=== PATIENT | female | born 1990 | race Caucasian/White ===

== ENCOUNTER 2022-12-12 09:50 | Outpatient (CLI) | payer BC, SELFPAY | END 2022-12-12 09:51 | disposition home or self-care (01) | PROVIDERS: PCP Physician Assistant Medical; Visit Provider Physician Assistant Medical | DX: E04.1 Nontoxic single thyroid nodule (principal) | CPT/HCPCS: 84443 ==

== ENCOUNTER 2022-12-19 14:39 | Outpatient (CLI) | payer BC, SELFPAY ==
--- NOTE | 2022-12-19 14:45 | CRLHL7_ITS ---
For Patients: As a result of the Cures Act, medical imaging exams and procedure reports are released immediately into your electronic medical record. You may view this report before your referring provider. If you have questions, please contact your health care provider. INDICATION: Follow up thyroid lobe nodules. TECHNIQUE: Directed thyroid ultrasound. COMPARISON: November 25, 2011. November 22, 2017. FINDINGS: The right thyroid lobe measures 5.9 x 1.6 x 1.7 cm. The left thyroid lobe measures 4.8 x 1.5 x 1.7 cm. The isthmus measures 0.4 cm in thickness. Stable solid hypoechoic nodule inferior left thyroid gland measuring 5 x 4 x 4 mm, previously 4 x 6 x 4 mm. Mid upper pole right thyroid lobe nodule measuring 1.2 x 0.6 x 1.6 cm, previously 1.6 x 0.7 x 1 cm. This is solid and well circumscribed. Within the inferior pole of the right thyroid gland there is a 1.8 x 0.6 x 1.2 cm solid well-circumscribed nodule previously measuring 1.1 x 0.7 x 1.0 cm. No new nodules. No glo thyroidal masses or lymphadenopathy. IMPRESSION: 1. Stable lower pole left thyroid lobe nodule. 2. Stable mid upper pole right thyroid lobe nodule. 3. Slight increase in the size of a lower pole nodule on the right measuring up to 1.8 cm previously 1.1 cm. This can be followed. TI-RADS 3. TR3: Mildly Suspicious FNA if greater than or equal to 2.5 cm Follow if greater than or equal to 1.5 cm Dictated by Robb Fournier MD @ 12/20/2022 8:07:51 AM (Electronically Signed)
== END 2022-12-19 14:40 | disposition home or self-care (01) ==
LOC: US 14:40
PROVIDERS: PCP Physician Assistant Medical; Visit Provider Physician Assistant Medical
DX: E04.1 Nontoxic single thyroid nodule (principal)
CPT/HCPCS: 76536

== ENCOUNTER 2023-06-23 12:39 | Outpatient (CLI) | payer BC, SELFPAY ==
--- NOTE | 2023-06-23 13:00 | CRLHL7_ITS ---
For Patients: As a result of the Century Cures Act, medical imaging exams and procedure reports are released immediately into your electronic medical record. You may view this report before your referring provider. If you have questions, please contact your health care provider. INDICATION: Thyroid nodules. TECHNIQUE: Ultrasound thyroid with merchant-scale and color Doppler analysis. COMPARISON: 12/19/2022 FINDINGS: Right lobe: 6.1 x 1.7 x 2.1 cm. Lesion 1: Hypoechoic nodule measuring 1.6 x 0.7 x 1.3 cm, previously measuring 1.6 cm. Lesion 2: Hypoechoic nodule measuring 1.3 x 0.7 x 1.2 cm, previously measuring 1.8 x 0.6 x 1.2 cm. Left lobe: 5.0 x 1.5 x 1.8 cm. Lesion 1: Hypoechoic nodule measuring 5 x 5 x 5 millimeters, previously measuring 5 x 4 x 4 millimeters. Isthmus: 3 millimeters Echotexture of the thyroid parenchyma is normal. Color Doppler analysis demonstrates normal vascularity. No evidence of lymphadenopathy or parathyroid mass. IMPRESSION: Similar bilateral thyroid nodules. - ACR TI-RADS [email or web address] TR1: Benign No FNA TR2: Not Suspicious No FNA TR3: Mildly Suspicious FNA if greater than or equal to 2.5 cm Follow if greater than or equal to 1.5 cm TR4: Moderately Suspicious FNA if greater than or equal to 1.5 cm Follow if greater than or equal to 1 cm TR5: Highly Suspicious FNA if greater than or equal to 1 cm Follow if greater than or equal to 0.5 cm Dictated by Panda Marques MD @ 06/23/2023 1:30:58 PM (Electronically Signed)
== END 2023-06-23 12:40 | disposition home or self-care (01) ==
LOC: US 12:40
PROVIDERS: PCP Physician Assistant Medical; Visit Provider Physician Assistant Medical
DX: E04.1 Nontoxic single thyroid nodule (principal)
CPT/HCPCS: 76536

== ENCOUNTER 2024-03-11 08:53 | Outpatient (CLI) | payer BC, SELFPAY | END 2024-03-11 08:54 | disposition home or self-care (01) | LOC: LKVREF 08:54 | PROVIDERS: PCP Physician Assistant Medical; Visit Provider Obstetrics & Gynecology | DX: O26.851 Spotting complicating pregnancy, first trimester (principal); Z3A.01 Less than 8 weeks gestation of pregnancy | CPT/HCPCS: 84702 ==

== ENCOUNTER 2024-03-13 10:23 | Outpatient (CLI) | payer BC, SELFPAY | END 2024-03-13 10:24 | disposition home or self-care (01) | LOC: NFLDREF 03-15 12:55 | PROVIDERS: PCP Physician Assistant Medical; Referring Provider Physician Assistant Medical; Visit Provider Obstetrics & Gynecology | DX: O20.9 Hemorrhage in early pregnancy, unspecified (principal) | CPT/HCPCS: 84702 ==

== ENCOUNTER 2024-03-18 10:24 | Outpatient (CLI) | payer BC, SELFPAY | END 2024-03-18 10:25 | disposition home or self-care (01) | PROVIDERS: PCP Physician Assistant Medical; Visit Provider Physician Assistant | DX: O03.9 Complete or unspecified spontaneous abortion without complication (principal) | CPT/HCPCS: 84702 ==

== ENCOUNTER 2025-03-07 16:39 | Outpatient (CLI) | payer BC, SELFPAY | END 2025-03-07 16:40 | disposition home or self-care (01) | LOC: LKVREF 16:40 | PROVIDERS: PCP Physician Assistant Medical; Visit Provider Obstetrics & Gynecology | DX: Z34.91 Encounter for supervision of normal pregnancy, unspecified, first trimester (principal) | CPT/HCPCS: 84702 ==

== ENCOUNTER 2025-03-10 09:09 | Outpatient (CLI) | payer BC, SELFPAY | END 2025-03-10 09:10 | disposition home or self-care (01) | LOC: NFLDREF 03-12 08:16 | PROVIDERS: PCP Physician Assistant Medical; Referring Provider Physician Assistant Medical; Visit Provider Obstetrics & Gynecology | DX: Z34.91 Encounter for supervision of normal pregnancy, unspecified, first trimester (principal) | CPT/HCPCS: 84702 ==

== ENCOUNTER 2025-04-08 11:07 | Outpatient (CLI) | payer BC, SELFPAY ==
--- NOTE | 2025-04-08 11:30 | CRLHL7_ITS ---
For Patients: As a result of the Cures Act, medical imaging exams and procedure reports are released immediately into your electronic medical record. You may view this report before your referring provider. If you have questions, please contact your health care provider. OB ULTRASOUND INDICATION: Dating and viability. TECHNIQUE: Real time grayscale imaging of the fetus was performed. Transvaginal. Transvaginal imaging performed to better demonstrate the endometrium and ovaries. Surgery: One previous 9 years ago. LMP: 02/01/2025. MARLON by LMP: 11/08/2025. GA: 9 w, 3 d. Previous US: No CRL: 2.8 cm. 9 w 4 d. MARLON: 11/07/2025. FHR: 176 BPM. Gestational sac: 3.2 cm. Appears within normal limits. Yolk sac: 3.9 mm. Appears within normal limits. Right ovary: 4.1 x 1.9 x 2.3 cm. CL. Left ovary: N/V. IMPRESSION: 1. Single living intrauterine measures 9 weeks 4 days with sonographic due date 11/07/2025. 2. Right-sided subchorionic hemorrhage measures 13 x 14 x 4 mm. Panda Marques M.D. Diagnostic Radiologist [email or web address] OTTO/rosalind boyer/Dictated by: Panda Marques MD @ 04/08/2025 12:12:00 PM (Electronically Signed)
== END 2025-04-08 11:08 | disposition home or self-care (01) ==
LOC: US 11:08
PROVIDERS: PCP Physician Assistant Medical; Visit Provider Advanced Practice Midwife
DX: O20.9 Hemorrhage in early pregnancy, unspecified (principal); Z3A.09 9 weeks gestation of pregnancy
CPT/HCPCS: 76817; 83021; 84439; 84443; 86703; 86706; 86803; 86850; 86900; 86901; 87086; 87340; 87491; 87591; 87624

== ENCOUNTER 2025-04-08 13:38 | Outpatient (CLI) | payer BC, SELFPAY ==
[2025-04-08 16:12] LABS: Chlamydia DNA Amplified* NOT DETECTED (No Detected); GC DNA Amplified* NOT DETECTED (No Detected)
[2025-04-10 17:25] LABS: HPV Source Cervical
[2025-04-11 14:23] LABS: Pap Test Digital Imaging Done
== END 2025-04-08 13:39 | disposition home or self-care (01) ==
PROVIDERS: PCP Physician Assistant Medical; Visit Provider Advanced Practice Midwife
DX: Z34.91 Encounter for supervision of normal pregnancy, unspecified, first trimester (principal)
CPT/HCPCS: 83020; 83021; 84439; 84443; 85660; 86592; 86703; 86704; 86706; 86762; 86787; 86803; 86850; 86900; 86901; 87086; 87340; 87491; 87591; 87624; 87625; 88141; 88142; 88175

== ENCOUNTER 2025-04-30 10:55 | Outpatient (CLI) | payer BC, SELFPAY | END 2025-04-30 10:56 | disposition home or self-care (01) | PROVIDERS: PCP Physician Assistant Medical; Visit Provider Midwife | DX: Z34.91 Encounter for supervision of normal pregnancy, unspecified, first trimester (principal); E04.1 Nontoxic single thyroid nodule; R89.9 Unspecified abnormal finding in specimens from other organs, systems and tissues | CPT/HCPCS: 84432; 86376; 86706; 86800 ==

== ENCOUNTER 2025-05-27 13:07 | Outpatient (CLI) | payer BC, SELFPAY | END 2025-05-27 13:08 | disposition home or self-care (01) | PROVIDERS: PCP Physician Assistant Medical; Visit Provider Obstetrics & Gynecology | DX: O99.282 Endocrine, nutritional and metabolic diseases complicating pregnancy, second trimester (principal); E05.90 Thyrotoxicosis, unspecified without thyrotoxic crisis or storm | CPT/HCPCS: 84439; 84443; 84445; 86376 ==